=== PATIENT | female | born 1980 | race African-American/Black ===

== ENCOUNTER 2022-08-25 12:43 | Emergency (ER) | payer OTHER ==
[2022-08-25] MEDS ORDERED: Carvedilol 25 MG TAB ONE (13:40)
[2022-08-25 13:42] LABS: #Basophils 0.1 thou/uL (0.0-0.2); #Eosinphils 0.1 thou/uL (0.0-0.7); #Lymphocytes 1.9 thou/uL (1.20-3.40); #Monocytes 0.4 thou/uL (0.11-0.59); #Neutrophils 3.2 thou/uL (1.40-6.50); %Basophils 1.6 % (0.0-1.0); %Eosinophils 1.5 % (0.0-10.0); %Monocytes 6.3 % (0.0-10.0); %Neutrophils 56.5 % (42.0-75.0); Hemoglobin 11.8 g/dL (12.0-16.0); Mean Corpuscular HGB CONC 30.2 g/dL (32.0-36.0); Mean Corpuscular Hemoglobin 24.6 pg (27.0-31.0); Mean Corpuscular Volume 81.6 fl (78.0-98.0); Platelet Count 328 10x3/uL (130-400); RBC Distribution Width 14.2 % (11.5-14.5); Red Blood Cell (RBC) Count 4.78 mill/uL (4.20-5.40); White Blood Cell (WBC) Count 5.6 10x3/uL (4.8-10.8)
[2022-08-25] MEDS ORDERED: Ondansetron PF 4 MG/2 ML Vial ONE (13:43)
[2022-08-25 14:03] LABS: ALT (SGPT) 12 U/L (8-55); AST (SGOT) 14 U/L (5-34); Albumin 4.1 g/dL (3.5-5.0); Alkaline Phosphatase 60 U/L (40-110); Anion Gap 16 mmol/L (10-20); BUN (Urea Nitrogen) 8 mg/dL (7.0-18.7); Bilirubin, Total 0.4 mg/dL (0.2-1.2); Calc. Creatinine Clearance 0 mL/min (70-130); Calcium 9.4 mg/dL (7.8-10.44); Carbon Dioxide 21 mmol/L (22-29); Chloride 104 mmol/L (98-107); Estimated GFR 90; Globulin 4.2 g/dL (2.4-3.5); Glucose 96 mg/dL (70-105); Potassium 3.8 mmol/L (3.5-5.1); Protein, Total 8.3 g/dL (6.0-8.3); Sodium 137 mmol/L (136-145)
[2022-08-25] MEDS ORDERED: Isosorbide Dinitrate 10 MG TAB PO SCH (14:30)
[2022-08-25 14:55] LABS: Bilirubin Negative (Negative); Blood, Urine Negative (Negative); Glucose, Urine (Dipstick) Negative (Negative); Ketone, Urine Negative (Negative); Leukocyte Negative (Negative); Nitrite Positive (Negative); Protein, Urine (Dipstick) Negative (Neg-Trace); Urobilinogen 0.2 mg/dL (Less than 2); pH, Urine 6.5 (5.0-9.0)
[2022-08-25 14:58] LABS: Clarity Hazy (Clear)
[2022-08-25 15:00] LABS: Bacteria/HPF 4+ HPF (None Seen); Squamous Epithelial 0-3 HPF (0-3); WBC/HPF 0-3 HPF (0-3)
[2022-08-25] MEDS ORDERED: Sodium Chloride 0.9% 100 ML ONE (15:40)
[2022-08-25] MEDS ORDERED: cefTRIAXone (ROCEPHIN) 1 GM VIAL ONE (15:40)
== END 2022-08-25 16:46 | disposition home or self-care (01) ==
LOC: NAV ERS 12:43
DX: N39.0 Urinary tract infection, site not specified (principal); I11.0 Hypertensive heart disease with heart failure; I50.9 Heart failure, unspecified; R42 Dizziness and giddiness; R29.700 NIHSS score 0; Z79.899 Other long term (current) drug therapy
CPT/HCPCS: 71045; 80053; 81003; 81015; 83880; 84484; 85025; 87077; 87086; 87186; 93005; 94760; 96361; 96365; 96375; J0696; J2405; J3490